=== PATIENT | female | born 1980 | race African-American/Black ===

== ENCOUNTER 2017-05-16 10:15 | Emergency (ER) | payer MEDICARE, MEDICAID ==
[~2017-05-16] VITALS: Ht 175.3 cm; Wt 68.0 kg
[2017-05-16 10:16] VITALS: BP 123/74; PULSE 72; RESP 20; TEMP 98.4; O2SAT 100
[2017-05-16] MEDS ORDERED: MESA1TAB2 PO (10:29)
--- NOTE | 2017-05-16 10:29 | PD ---
HPI Chief Complaint: Medication Refill Request Time Seen by Provider: 10:26 Travel History International Travel<30 days: No Contact w/Intl Traveler<30days: No Traveled to known affect area: No History of Present Illness HPI 37-year-old Af[place] female presents the emergency department for refill of her mesalamine 800 mg twice a day for her ulcerative colitis. Patient apparently was just released from the [facility]. She has no local primary care physician. She has no other acute problems or complaints. She is allergic to codeine, latex, penicillin, and Percocet. PFSH Past Medical History Psychiatric: Yes Schizophrenia: Yes (schizoaffective disorder) : 4 Para: 3 Miscarriage: 0 : 0 Social History Alcohol Use: No Tobacco Use: No Substance Use: No Allergies-Medications (Allergen,Severity, Reaction): Coded Allergies: Percocet (Verified Allergy, Severe, Hives, 05/16/17) Latex (Verified Allergy, Intermediate, SMALL BUMPS ON SKIN, 05/16/17) Codeine (Verified Allergy, Unknown, 05/16/17) pt states allergic but not sure what happens Penicillin (Verified Allergy, Unknown, 05/16/17) Reported Meds & Prescriptions Reported Meds & Active Scripts Active Review of Systems Except as stated in HPI: all other systems reviewed are Neg General / Constitutional: No: Fever Eyes: No: Visual changes HENT: No: Headaches Cardiovascular: No: Chest Pain or Discomfort Respiratory: No: Shortness of Breath Gastrointestinal: No: Abdominal Pain Genitourinary: No: Dysuria Musculoskeletal: No: Pain Skin: No Rash Neurologic: No: Weakness Psychiatric: No: Depression Endocrine: No: Polydipsia Hematologic/Lymphatic: No: Easy Bruising Physical Exam Narrative GENERAL: Patient is in no acute distress. SKIN: Warm and dry. Normal color. Normal turgor. HEAD: Atraumatic. Normocephalic. EYES: Pupils equal and round. No scleral icterus. No injection or drainage. ENT: No nasal bleeding or discharge. Mucous membranes pink and moist. Pharynx is clear. Airway is patent. NECK: Trachea midline. Supple. CARDIOVASCULAR: Regular rate and rhythm. RESPIRATORY: No accessory muscle use. Clear to auscultation. Breath sounds equal bilaterally. GASTROINTESTINAL: Abdomen soft, non-tender, nondistended. Hepatic and splenic margins not palpable. MUSCULOSKELETAL: Extremities without clubbing, cyanosis, or edema. No obvious deformities. NEUROLOGICAL: Awake and alert. No obvious cranial nerve deficits. Motor grossly within normal limits. Five out of 5 muscle strength in the arms and legs. Normal speech. PSYCHIATRIC: Appropriate mood and affect; insight and judgment normal. Data Data Last Documented VS Vital Signs Date Time Temp Pulse Resp B/P Pulse Ox O2 Delivery O2 Flow Rate FiO2 05/16/17 10:16 98.4 72 20 123/74 100 Room Air MDM Medical Decision Making Medical Screen Exam Complete: Yes Emergency Medical Condition: Yes Differential Diagnosis Ulcerative colitis. Need for medication. Need for primary care. Narrative Course Patient's medically stable at time of exam. Patient is given a refill of her mesalamine DR 800 mg twice a day, with 1 refill. Patient is to get further refills from a local primary care physician. Diagnosis Primary Impression: Ulcerative colitis Qualified Code: K51.90 - Ulcerative colitis without complications, unspecified location Referrals: [facility] Patient Instructions: General Instructions, Ulcerative Colitis (ED) Additional Instructions: Patient's medically stable at time of exam. Patient is given a refill of her mesalamine DR 800 mg twice a day, with 1 refill. Patient is to get further refills from a local primary care physician. Med/Other Pt SpecificInfo: Prescription(s) given Disposition: 01 DISCHARGE HOME Condition: Stable Adriel Guevara May 16, 2017 10:29
== END 2017-05-16 11:00 | disposition home or self-care (01) ==
LOC: NEPK 10:15
DX: K51.90 Ulcerative colitis, unspecified, without complications (principal); F20.9 Schizophrenia, unspecified
CPT/HCPCS: 99281

== ENCOUNTER 2017-05-19 21:56 | Emergency (ER) | payer MEDICARE, MEDICAID ==
[~2017-05-19 21:56] MED LIST: MESA1TAB2 PO
[2017-05-19 22:01] VITALS: BP 125/77; PULSE 75; RESP 16; TEMP 99.1; O2SAT 99
[2017-05-20] MEDS ORDERED: DEXAMETHASONE SOD PHOS 4 MG/ML VIAL IM ONE (00:45)
--- NOTE | 2017-05-20 00:51 | PD ---
HPI Chief Complaint: Pain: Acute or Chronic Time Seen by Provider: 00:48 Travel History International Travel<30 days: No Contact w/Intl Traveler<30days: No Traveled to known affect area: No History of Present Illness HPI Patient comes in complaining of right hip pain that began yesterday. Patient denies any trauma, fevers, numbness or tingling anywhere, radiation of the pain , loss change in bowel or bladder, abdominal pain, chest pain, shortness of breath, or . Patient states she is told over a year ago by orthopedic surgeon that she had arthritis in that hip, but does not currently have a primary care doctor. Patient's reports pain improves with heat. Walking makes pain worse. PFSH Past Medical History Gastrointestinal Disorders: Yes (ulcerative colitis) Psychiatric: Yes Schizophrenia: Yes (schizoaffective disorder) ?: Not : 4 Para: 3 Miscarriage: 0 : 0 Social History Alcohol Use: No Tobacco Use: No Substance Use: No Allergies-Medications (Allergen,Severity, Reaction): Coded Allergies: Percocet (Verified Allergy, Severe, Hives, 05/20/17) Latex (Verified Allergy, Intermediate, SMALL BUMPS ON SKIN, 05/20/17) Codeine (Verified Allergy, Unknown, 05/20/17) pt states allergic but not sure what happens Penicillin (Verified Allergy, Unknown, 05/20/17) Reported Meds & Prescriptions Reported Meds & Active Scripts Active Prednisone 10 Mg Tab 10 Mg PO BID Mesalamine DR (Mesalamine) 800 Mg Tab 1,600 Mg PO BID 30 Days Review of Systems Except as stated in HPI: all other systems reviewed are Neg Physical Exam Narrative GENERAL: Well-developed, well nourished, in no acute distress, and non-ill appearing. SKIN: Focused skin assessment warm and dry. HEAD: Atraumatic. Normocephalic. EYES: Pupils equal and round. EOMI. No scleral icterus. No injection or drainage. ENT: No nasal bleeding or discharge. Mucous membranes pink and moist. NECK: Trachea midline. Supple. No nuclear rigidity. CARDIOVASCULAR: Radial pulses 2+, intact, and equal bilaterally. Capillary refill less than 2 seconds. RESPIRATORY: No accessory muscle use. No respiratory distress. MUSCULOSKELETAL: No obvious deformities. No clubbing. No cyanosis. No edema. Full range of motion. Hip: FROM and equal BL with passive flexion, extension, Abduction, Adduction, and internal/external rotation. Pulses equal BL distal to injury. Capillary refill less than 2 seconds distal to injury and equal BL. FROM distal to injury and equal BL. Strength distal to injury equal BL. NV intact distal to injury and equal BL. Plantar flexion and dorsal flexion equal BL. Dorsal pulses equal BL. Sensation equal BL 1st web space. Patient reports pain with passive internal and external rotation of right hip. NEUROLOGICAL: Awake and alert. No obvious cranial nerve deficits. Motor grossly within normal limits. Normal speech. PSYCHIATRIC: Appropriate mood and affect; insight and judgment normal. Data Data Last Documented VS Vital Signs Date Time Temp Pulse Resp B/P Pulse Ox O2 Delivery O2 Flow Rate FiO2 05/19/17 22:01 99.1 75 16 125/77 99 Room Air Orders Dexamethasone Inj (Decadron Inj) (05/20/17 00:45) MDM Medical Decision Making Medical Screen Exam Complete: Yes Emergency Medical Condition: Yes Differential Diagnosis Arthritis, contusion, strain, other Narrative Course There is no clinical evidence for fracture. There is no clinical evidence to suspect bony injury by exam. No obvious ligamental injury or internal derangement is noted at this time. The distal extremity appears neurovascularly intact, without evidence of neurovascular injury nor compartment syndrome. The effected limb was splinted. The patient was discharged and splint care instructions and given warnings for vascular compromise. The patient is to follow up with PCP or Orthopedics. The patient agrees with plan. Patient in no obvious distress upon re-evaluation. Discussed patient with Dr. Bowen prior to discharge, who is in agreement with plan of care and disposition. Patient was asked if they wanted to speak to my attending, which the patient did not wish to do at this time. Any questions/concerns in reference to patient diagnosis/condition discussed and clarified prior to patient's discharge. Reinforced sheer importance of close follow up with patient 's primary physician or primary care clinic. Instructed patient to return to ED immediately, if symptoms return/worsen. Pt showed understanding of above instructions. Further instructions and recommendations were detailed in discharge paperwork. Pt ambulated without difficulty out of ED at discharge. Diagnosis Primary Impression: Right hip pain Referrals: Edu Eden MD Patient Instructions: Arthritis (ED), General Instructions, Hip Pain (ED) Additional Instructions: Follow-up with your primary care physician and/or orthopedic in 3-5 days for reevaluation. Take all medication as prescribed. Return to the emergency department if symptoms get worse. Med/Other Pt SpecificInfo: Prescription(s) given Scripts Prednisone 10 Mg Tab10 Mg PO BID #6 TAB Ref 0 Prov:Willem Bowen MD 05/20/17 Disposition: 01 DISCHARGE HOME Condition: Stable Marcus Telles May 20, 2017 00:51
[2017-05-20] MEDS ORDERED: PRED10 PO (00:52)
[2017-06-04] MEDS ORDERED: ASAC800T PO (10:54)
[2017-06-04] MEDS ORDERED: BENZ1INJ2 IJ (10:54)
[2017-06-04] MEDS ORDERED: ARIP10IN IM (10:54)
[2017-06-04] MEDS ORDERED: OMEP20TA PO (10:54)
[2017-06-04] MEDS ORDERED: FERR325C PO (10:54)
== END 2017-05-20 01:45 | disposition home or self-care (01) ==
LOC: NEPD 21:56
DX: M25.551 Pain in right hip (principal); Z87.19 Personal history of other diseases of the digestive system; Z86.59 Personal history of other mental and behavioral disorders
CPT/HCPCS: 96372; 99284; J1100

== ENCOUNTER 2018-02-22 21:40 | Emergency (ER) | payer MEDICARE, MEDICAID ==
[~2018-02-22] VITALS: Ht 167.6 cm; Wt 76.1 kg
[~2018-02-22 21:40] MED LIST changes: +ARIP10IN IM; +ASAC800T PO; +BACT800T5 PO; +BENZ1INJ2 IJ; +FERR325T18 PO; +FLUC150T PO; -MESA1TAB2 PO; +OMEP20TA93 PO
[2018-02-22 21:48] VITALS: BP 117/62; PULSE 85; RESP 18; TEMP 98.7; O2SAT 100
[2018-02-22] MEDS ORDERED: PROPARACAINE HCL 0.5% OPHT SOLN 15 ML BTL LEFT EYE ONE (22:15)
[2018-02-22] MEDS ORDERED: TOBRO LEFT EYE (22:32)
--- NOTE | 2018-02-22 22:33 | PD ---
HPI Chief Complaint: Eye Problems/Injury Time Seen by Provider: 22:02 Travel History International Travel<30 days: No Contact w/Intl Traveler<30days: No Traveled to known affect area: No History of Present Illness HPI 37-year-old female patient with history of ulcerative colitis, presents to the ER today for a few days history of left eye redness, foreign irritation, and photophobia. She states that a week or 2 ago the same thing happened but went away on its own after a few days. She has not had any fevers, runny nose, or any other issues. Modifying Factors: None Associated Signs & Symptoms: Left eye redness, irritation, photophobia none Risk Factors: Ulcerative colitis PFSH Past Medical History Bipolar Disorder: Yes Diminished Hearing: No Gastrointestinal Disorders: Yes (ulcerative colitis) Psychiatric: Yes Immunizations Current: Yes Schizophrenia: Yes (schizoaffective disorder) Tetanus Vaccination: Unknown Influenza Vaccination: Yes ?: Not : 4 Para: 3 Miscarriage: 0 : 0 Past Surgical History Surgical History: No Previous Surgery Social History Alcohol Use: No Tobacco Use: No Substance Use: No Allergies-Medications (Allergen,Severity, Reaction): Coded Allergies: acetaminophen (Verified Allergy, Severe, Hives, 02/22/18) codeine (Verified Allergy, Severe, Hives , 02/22/18) pt states allergic but not sure what happens oxycodone (Verified Allergy, Severe, Hives, 02/22/18) penicillin G (Verified Allergy, Severe, Hives, 02/22/18) latex (Verified Allergy, Intermediate, SMALL BUMPS ON SKIN, 02/22/18) Reported Meds & Prescriptions Reported Meds & Active Scripts Active Omeprazole 20 Mg Tab 20 Mg PO DAILY Reported Benztropine Mesylate 2 Mg/2 Ml Vial 1 Mg IJ DAILY Asacol HD (Mesalamine) 800 Mg Tab 1,600 Mg PO BID Swallow whole. Take on an empty stomach. Review of Systems Except as stated in HPI: all other systems reviewed are Neg Physical Exam Narrative GENERAL: Well-nourished, well-developed well-developed middle-age - [place] female patient in mild distress. SKIN: Focused skin assessment warm/dry. HEAD: Normocephalic. EYES: Left conjunctival injection. No scleral icterus. No significant drainage. Mild photophobia. Pupil on the left is poorly reactive to light Compared to the right, 2 mm. No hypopyon or fluid levels identified in the anterior chamber. I am unable to fully evaluate the anterior chamber although I did not see any obvious flare or cloudiness. Positive photophobia. Tonometry measuring up on the left is 29 mmHg. NECK: Supple, trachea midline. No JVD or lymphadenopathy. CARDIOVASCULAR: Regular rate and rhythm without murmurs, gallops, or rubs. RESPIRATORY: Breath sounds equal bilaterally. No accessory muscle use. GASTROINTESTINAL: Abdomen soft, non-tender, nondistended. MUSCULOSKELETAL: No cyanosis, or edema. BACK: Nontender without obvious deformity. No CVA tenderness. Data Data Last Documented VS Vital Signs Date Time Temp Pulse Resp B/P (MAP) Pulse Ox O2 Delivery O2 Flow Rate FiO2 02/22/18 21:59 (80) 02/22/18 21:48 98.7 85 18 100 Orders Orders Proparacaine 0.5% Opth Soln (Alcaine 0.5 (02/22/18 22:15) [facility] Medical Decision Making Medical Screen Exam Complete: Yes Emergency Medical Condition: Yes Medical Record Reviewed: Yes Differential Diagnosis Conjunctivitis versus uveitis Narrative Course I do not see any signs of corneal abrasions. Considering patient's history, there is concern here of possible uveitis. Case was discussed with Dr. Felix who would recommend that patient just TobraDex 4 times daily and follow-up on Sunday at 8 AM, call our office. Return for any worsening in pain, vision change, or new symptoms. The plan was discussed with the patient and she states understanding. Diagnosis Primary Impression: Irritation of left eye Referrals: Donna Felix MD 2 days Sunday at 8 AM call office Med/Other Pt SpecificInfo: Prescription(s) given Scripts Tobramycin-Dexamethasone Opth Drops (Tobradex Opth Drops) 0.3-0.1 % Susp 1 DROP LEFT EYE Q6H for Infection/Inflammation, #1 BOTTLE 0 Refills Prov: Faustino Marti MD 02/22/18 Disposition: 01 DISCHARGE HOME Condition: Stable Faustino Marti MD Feb 22, 2018 22:33
[2018-02-22] MEDS ORDERED: FLUORESCEIN SOD 1 MG STRIP LEFT EYE ONE (22:45)
== END 2018-02-22 22:38 | disposition home or self-care (01) ==
LOC: PHEFT 21:40
DX: H10.022 Other mucopurulent conjunctivitis, left eye (principal); F31.9 Bipolar disorder, unspecified; F25.9 Schizoaffective disorder, unspecified; Z79.899 Other long term (current) drug therapy; Z88.6 Allergy status to analgesic agent; Z88.5 Allergy status to narcotic agent; Z88.0 Allergy status to penicillin
CPT/HCPCS: 99283